=== PATIENT | female | born 1990 | race American Indian/Alaskan Native ===

== ENCOUNTER 2021-04-19 19:28 | Emergency (ER) | payer BC, OTHER | END 2021-04-19 22:26 | LOC: ED 19:28 | DX: Z04.1 Encounter for examination and observation following transport accident (principal); Z53.21 Procedure and treatment not carried out due to patient leaving prior to being seen by health care provider ==

== ENCOUNTER 2021-04-19 20:06 | Observation (INO) | payer BC, OTHER ==
[2021-04-19] MEDS ORDERED: LACTATED RINGERS 1,000 ML IV ONE (20:45)
[2021-04-19 21:13] LABS: Bilirubin,Urine NEG (Negative); Blood,Urine NEG (Negative); Color,Urine Yellow (Yellow); Mucus,Urine FEW /HPF; Protein,Urine <15 mg/dL mg/dL (Negative); Urobilinogen,Urine < 2.0 mg/dL (<2.0)
[2021-04-19 21:33] LABS: Hemoglobin 10.4 gm/dl (10.1-14.3); Mean Corpuscular HGB Conc 35 % (30-34); Mean Corpuscular Volume 91 fl (79-97); Platelet Count 282 K/mm3 (140-440); Red Blood Count 3.29 M/mm3 (3.65-5.03); Red Cell Distribution Width 14.2 % (13.2-15.2)
[2021-04-19 21:56] LABS: Alanine Aminotransferase 13 units/L (7-56); Albumin 3.2 g/dL (3.9-5); BUN/Creatinine Ratio 13; Blood Urea Nitrogen 10 mg/dL (7-17); Hemolysis Index 11
--- NOTE | 2021-04-19 23:54 | Ultrasound Report ---
ULTRASOUND OBSTETRIC LIMITED ULTRASOUND BIOPHYSICAL PROFILE INDICATION / CLINICAL INFORMATION: wellbeing. Evaluate for placental abruption. DEVENDRA. Clinical Gestational Age (GA) in weeks, days: 31, 0 TECHNIQUE: Transabdominal. COMPARISON: None available. FINDINGS: BREATHING MOVEMENT = 2 GROSS BODY MOVEMENT = 2 TONE = 2 QUALITATIVE AMNIOTIC FLUID VOLUME = 2 TOTAL BIOPHYSICAL SCORE = 8/8 HEART RATE (beats per minute): 142 AMNIOTIC FLUID INDEX (cm) = 7.6 (normal = 7-24 cm) PRESENTATION: Cephalic. ADDITIONAL FINDINGS: Right lateral/fundal placenta free of the os. No placental abruption. IMPRESSION: 1. Biophysical Score = 8/8 2. No acute abnormality. Signer Name: Juma Lara MD Signed: 04/19/2021 11:50 PM Workstation Name: [id number]
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
[2021-04-20] MEDS ORDERED: ALUM-MAG HYDROXIDE-SIMETHICONE 200-200-20MG/5ML ORAL LIQD 30 ML PO PRN (00:46)
[2021-04-20] MEDS ORDERED: ACETAMINOPHEN 500 MG TAB PO PRN (00:52)
[2021-04-20] MEDS ORDERED: LACTATED RINGERS 1,000 ML IV SCH (01:00)
--- NOTE | 2021-04-20 08:25 | Ultrasound Report ---
ULTRASOUND OBSTETRIC LIMITED INDICATION / CLINICAL INFORMATION: borderline low devendra. TECHNIQUE: Transabdominal ultrasound imaging. COMPARISON: 04/19/2021 FINDINGS: HEART RATE (beats per minute): 156 AMNIOTIC FLUID INDEX (cm) = 14.3 PRESENTATION: Cephalic. ADDITIONAL FINDINGS: None. IMPRESSION: Normal DEVENDRA on today's exam measuring 14.3 Signer Name: Missael Mariscal Jr, MD Signed: 04/20/2021 8:20 AM Workstation Name: [id number]
--- NOTE | 2021-04-20 08:26 | Discharge Summary ---
Providers - Providers Date of Admission: 04/20/21 00:46 Date of discharge: 04/20/21 Attending physician: BECCA CATALAN Primary care physician: BECCA CATALAN Hospitalization Reason for admission: observation Discharge diagnosis: other (IUP at ) Condition at discharge: Good Disposition: DC-01 TO HOME OR SELFCARE Plan - Provider Discharge Summary Activity: routine Diet: routine Instructions: routine Additional instructions: [] Smoking cessation referral if applicable(refer to patient education folder for contact #) [] Refer to [facility]'s [facility] Booklet Call your doctor immediately for: * Fever > 100.5 * Heavy vaginal bleeding ( >1 pad per hour) * Severe persistent headache * Shortness of breath * Reddened, hot, painful area to leg or breast * contractions>6/hr * decreased movement <10 movements in 2 hours * leaking fluid suspicious of bag of martinez breaking Please make an appointment to be seen in the office within 1 week. Thanks! - Follow up plan Follow up: BECCA CATALAN MD [Primary Care Provider] - 7 Days
[2021-04-20 08:51] VITALS: BP 120/75
[2021-04-20] MEDS ORDERED: PRENATAL VIT27-FE FUMARATE-FOLIC ACID VIT TAB PO SCH (10:00)
== END 2021-04-20 09:25 | disposition home or self-care (01) ==
LOC: TRG 20:06 → APU 20:07 → LD 04-20 00:46 → TRG 04-20 00:46 → LD 04-20 01:01
PROVIDERS: ADMIT Obstetrics & Gynecology; ATTEND Obstetrics & Gynecology
DX: O36.8130 Decreased fetal movements, third trimester, not applicable or unspecified (principal); O42.913 Preterm premature rupture of membranes, unspecified as to length of time between rupture and onset of labor, third trimester; Z3A.31 31 weeks gestation of pregnancy; V89.2XXA Person injured in unspecified motor-vehicle accident, traffic, initial encounter; Y93.89 Activity, other specified; Y92.89 Other specified places as the place of occurrence of the external cause; Y99.8 Other external cause status
CPT/HCPCS: 36415; 59025; 76815; 76819; 80053; 81001; 85027; 85460; 86850; 86900; 86901; G0378; J7120

== ENCOUNTER 2021-06-11 17:14 | Inpatient (IN) | payer BC, OTHER ==
[2021-06-11] MEDS ORDERED: LOPERAMIDE 2 MG CAP PO PRN (18:31)
[2021-06-11] MEDS ORDERED: NalbUPHINE 10 MG/1 ML INJ IV PRN (18:31)
[2021-06-11] MEDS ORDERED: ACETAMINOPHEN 325 MG TAB PO PRN (18:31)
[2021-06-11] MEDS ORDERED: LIDOCAINE (2%) 20 MG/1 ML VIAL 20 ML MDV INFILTRATI ONE (18:31)
[2021-06-11] MEDS ORDERED: MINERAL OIL 30 ML ORAL LIQD PO PRN (18:31)
[2021-06-11] MEDS ORDERED: CARBOPROST TROMETHAMINE 250 MCG/1 ML INJ IM PRN (18:31)
[2021-06-11] MEDS ORDERED: TERBUTALINE 1 MG/1 ML INJ SUB-Q PRN (18:31)
[2021-06-11] MEDS ORDERED: miSOPROStol 200 MCG TAB PR PRN (18:31)
[2021-06-11] MEDS ORDERED: ePHEDrine SULFATE 50 MG/1 ML INJ IV PRN ×2 (18:31→19:52)
[2021-06-11] MEDS ORDERED: fentaNYL 100 MCG/2 ML INJ IV PRN (18:31)
[2021-06-11] MEDS ORDERED: OXYTOCIN 10 UNIT/1 ML INJ IM PRN (18:31)
[2021-06-11] MEDS ORDERED: ONDANSETRON 4 MG/2 ML INJ IV PRN (18:31)
[2021-06-11] MEDS ORDERED: METHYLERGONOVINE MALEATE 0.2 MG/ML VIAL IM PRN (18:31)
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
[2021-06-11] MEDS ORDERED: LACTATED RINGERS 1,000 ML IV SCH (18:45)
[2021-06-11] MEDS ORDERED: OXYTOCIN DRIP 30 UNITS/500 ML BAG IV SCH ×2 (19:00→23:00)
[2021-06-11 19:38] LABS: Hematocrit 31.3 % (30.3-42.9); Mean Corpuscular HGB Conc 35 % (30-34); Mean Corpuscular Volume 90 fl (79-97); Platelet Count 292 K/mm3 (140-440); Red Blood Count 3.49 M/mm3 (3.65-5.03); Red Cell Distribution Width 16.3 % (13.2-15.2)
--- NOTE | 2021-06-11 19:51 | Anesthesia Consultation ---
Anesthesia Consult and Med Hx Date of service: 06/11/21 - Airway Anesthetic Teeth Evaluation: Poor ROM Head & Neck: Adequate Mental/Hyoid Distance: Adequate Mallampati Class: Class II Intubation Access Assessment: Probably Good - Pulmonary Exam CTA: Yes - Cardiac Exam Cardiac Exam: RRR - Pre-Operative Health Status ASA Pre-Surgery Classification: ASA3 Proposed Anesthetic Plan: Epidural - Pulmonary Hx Smoking: No Hx Asthma: No Hx Respiratory Symptoms: No SOB: No COPD: No Home Oxygen Therapy: No Hx Pneumonia: No Hx Sleep Apnea: No - Cardiovascular System Hx Hypertension: No Hx Coronary Artery Disease: No Hx Heart Attack/AMI: No Hx Angina: No Hx Percutaneous Transluminal Coronary Angioplasty (PTCA): No Hx Cardia Arrhythmia: No Hx Pacemaker: No Hx Internal Defibrillator: No Hx Valvular Heart Disease: No Hx Heart Murmur: No Hx Peripheral Vascular Disease: No - Central Nervous System Hx Neuromuscular Disorder: No Hx Seizures: No CVA: No Hx Back Pain: No Hx Psychiatric Problems: No - Gastrointestinal Hx Ulcer: No Hx Gastroesophageal Reflux Disease: No - Endocrine Hx Renal Disease: No Hx End Stage Renal Disease: No Hx Cirrhosis: No Hx Liver Disease: No Hx Insulin Dependent Diabetes: No Hx Non-Insulin Dependent Diabetes: No Hx Thyroid Disease: No Hx Hypothyroidism: No Hx Hyperthyroidism: No - Hematic Hx Anemia: No Hx Sickle Cell Disease: No - Other Systems Hx Alcohol Use: Yes (Not drank since pregancy) Hx Substance Use: No Hx Cancer: No Hx Obesity: Yes
[2021-06-11] MEDS ORDERED: NALOXONE 2 MG/2 ML INJ IV PRN (19:52)
[2021-06-11] MEDS ORDERED: fentaNYL-BUPIV 2 MCG/ML-0.125% 200 MCG/100 ML BAG EPIDURAL SCH (20:00)
--- NOTE | 2021-06-11 21:10 | Progress Note ---
Assessment and Plan Patient comfortable s/p epidural placement. SVE 8/100/+2, AROM clear fluid. Pt reports EFW by [facility] 7#12oz Tuesday. Pelvis feels adequate, anticipate . Will reexamine PRN. - Patient Problems (1) 38 weeks gestation of Current Visit: Yes Status: Acute (2) Active labor at term Current Visit: Yes Status: Acute Subjective - Subjective Date of service: 06/11/21 Principal diagnosis: IUP @ 38+4: Laboring Interval history: EDC Calculations by LMP: 06/21/2021 Past History : 1 Term Births: 0 Premature Births: 0 Living Children: 0 Para: 0 Mult. Births: 0 Prev : 0 Aborta: 0 Elect. Ab: 0 Spont. 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 % Sun Exposure: rarely Dietary Counseling: pn yes Past Medical History: Reviewed history from 12/29/2018 and no changes required: Negative Past Medical History Past Surgical History: Reviewed history from 12/29/2018 and no changes required: negative Past Medical History Anesthesia Complications: negative Anemia: negative Autoimmune Disorder: negative Bleeding Disorder: negative Blood Transfusions: negative Breast Disease: negative Diabetes: negative Heart Disease: negative Hypertension: negative Hepatitis/Liver Disease: negative Kidney Disease/UTI: negative Neurologic/Epilepsy/Migraines: negative Phlebitis/Varicosities: negative Psychiatric: negative Pulmonary Disease/Asthma: negative Thyroid Disease: negative Hospitalizations: negative Surgery (Non-mortgage or loan underwriter): negative Abnormal PAP: negative AMANDA Exposure: negative Infertility: negative Uterine Anomaly: negative Uterine Surgery (not C/S): negative Other Gynecologic Problems: negative Social Hx: Patient is Smoking History: Patient has never smoked. NO E/T/D Infection History Hx of STD: none HIV Risk Eval: no Hepatitis B Risk Eval: low risk Personal hx. of genital herpes: no Partner hx. of genital herpes: no Rash, Viral, or Febrile illness since last LMP? no Varicella/Chicken Pox Status: Previous Disease TB Risk: no Genetic History Congenital Heart Defect: Mom: no Dad: no Ralf Disease: Mom: no Dad: no Thalassemia Mom: no Dad: no Neural Tube Defect Mom: no Dad: no Down's Syndrome Mom: no Dad: no Kevin-Sachs Mom: no Dad: no Sickle Cell Disease/Trait Mom: no Dad: yes Comments: Brother of FOC Hemophilia Mom: no Dad: no Muscular Dystrophy Mom: no Dad: no Cystic Fibrosis Mom: no Dad: no [place] Chorea Mom: no Dad: no Mental Retardation Mom: no Dad: no Fragile X Mom: no Dad: no Other Genetic/Chromosomal Disorder Mom: no Dad: no Child w/other defect Mom: no Dad: no Enviromental Exposures Xray Exposure: no Medication, drug, or alcohol use since LMP: no Chemical/Other Exposure: no Exposure to Cat Liter: no Hx of Parvovirus (Fifth Disease): no Occupational Exposure to Children: none Current Allergies: No known allergies Patient reports: no new complaints (pt comfortable s/p epidural) Objective - Vital Signs Vital Signs: Vital Signs - 12hr 06/11/21 06/11/21 06/11/21 17:47 17:50 17:52 Temperature 99.6 F Pulse Rate 107 H 110 H 101 H Respiratory 22 Rate Blood Pressure 119/63 Blood Pressure 119/63 [Right] O2 Sat by Pulse 97 99 97 Oximetry O2 Sat by Pulse Oximetry [ Bilateral] 06/11/21 06/11/21 06/11/21 17:57 18:02 18:07 Temperature Pulse Rate 105 H 108 H 102 H Respiratory Rate Blood Pressure Blood Pressure [Right] O2 Sat by Pulse 99 98 98 Oximetry O2 Sat by Pulse Oximetry [ Bilateral] 06/11/21 06/11/21 06/11/21 18:25 18:27 18:32 Temperature Pulse Rate 107 H 106 H 101 H Respiratory Rate Blood Pressure Blood Pressure [Right] O2 Sat by Pulse 0 L 98 99 Oximetry O2 Sat by Pulse Oximetry [ Bilateral] 06/11/21 06/11/21 06/11/21 18:34 18:37 18:42 Temperature Pulse Rate 103 H 103 H 107 H Respiratory Rate Blood Pressure Blood Pressure [Right] O2 Sat by Pulse 94 96 96 Oximetry O2 Sat by Pulse Oximetry [ Bilateral] 06/11/21 06/11/21 06/11/21 18:47 18:52 18:57 Temperature Pulse Rate 109 H 114 H 118 H Respiratory Rate Blood Pressure Blood Pressure [Right] O2 Sat by Pulse 98 97 97 Oximetry O2 Sat by Pulse Oximetry [ Bilateral] 06/11/21 06/11/21 06/11/21 19:02 19:07 19:12 Temperature Pulse Rate 107 H 112 H 112 H Respiratory Rate Blood Pressure Blood Pressure [Right] O2 Sat by Pulse 98 96 98 Oximetry O2 Sat by Pulse Oximetry [ Bilateral] 06/11/21 06/11/21 06/11/21 19:17 19:24 19:28 Temperature Pulse Rate 109 H 113 H 113 H Respiratory Rate Blood Pressure 118/91 Blood Pressure [Right] O2 Sat by Pulse 97 99 Oximetry O2 Sat by Pulse Oximetry [ Bilateral] 06/11/21 06/11/21 06/11/21 19:29 19:34 20:18 Temperature Pulse Rate 107 H 111 H 117 H Respiratory Rate Blood Pressure 121/74 Blood Pressure [Right] O2 Sat by Pulse 98 97 100 Oximetry O2 Sat by Pulse Oximetry [ Bilateral] 06/11/21 06/11/21 06/11/21 20:19 20:21 20:22 Temperature Pulse Rate 115 H 122 H Respiratory Rate Blood Pressure 121/77 118/76 Blood Pressure [Right] O2 Sat by Pulse Oximetry O2 Sat by Pulse 98 Oximetry [ Bilateral] 06/11/21 06/11/21 06/11/21 20:23 20:24 20:25 Temperature Pulse Rate 118 H 116 H 116 H Respiratory Rate Blood Pressure 123/80 119/74 Blood Pressure [Right] O2 Sat by Pulse 96 Oximetry O2 Sat by Pulse Oximetry [ Bilateral] 06/11/21 06/11/21 06/11/21 20:28 20:29 20:32 Temperature Pulse Rate 113 H 114 H 107 H Respiratory Rate Blood Pressure 127/76 129/68 121/68 Blood Pressure [Right] O2 Sat by Pulse 100 Oximetry O2 Sat by Pulse Oximetry [ Bilateral] 06/11/21 06/11/21 06/11/21 20:33 20:35 20:39 Temperature Pulse Rate 115 H 117 H 112 H Respiratory Rate Blood Pressure 122/70 119/67 123/65 Blood Pressure [Right] O2 Sat by Pulse 98 Oximetry O2 Sat by Pulse Oximetry [ Bilateral] 06/11/21 06/11/21 20:51 21:00 Temperature Pulse Rate 112 H 97 H Respiratory Rate Blood Pressure 106/63 119/61 Blood Pressure [Right] O2 Sat by Pulse Oximetry O2 Sat by Pulse Oximetry [ Bilateral] - Exam Cardiovascular: Regular rate Lungs: Normal air movement Abdomen: Present: normal appearance, soft Vulva: both: normal Uterus: Present: normal FHR: category 1 Uterine Contraction Monitor Mode: External Cervical Dilatation: 8 Cervical Effacement Percentage: 100 station: +2 Uterine Contraction Frequency (min): 2-3 Uterine Contraction Duration: 60 Uterine Contraction Pattern: Regular Uterine Tone Measurement Phase: Contraction Uterine Contraction Intensity: Strong/Firm Extremities: normal - Labs Labs: Abnormal Labs 06/11/21 Unknown RBC 3.49 L MCHC 35 H RDW 16.3 H Laboratory Results - last 24 hr 06/11/21 06/11/21 06/11/21 Unknown Unknown Unknown WBC 9.2 RBC 3.49 L Hgb 11.0 Hct 31.3 MCV 90 MCH 32 MCHC 35 H RDW 16.3 H Plt Count 292 Syphilis IgG Antibody Nonreactive Blood Type O POSITIVE Antibody Screen Negative
--- NOTE | 2021-06-11 23:04 | Progress Note ---
Labor Epidural - Labor Epidural Start Time: 20:20 Stop Time: 20:33 Performed by:: MARGY SLOAN Procedure: Patient is requesting a laboring epidural for laboring pain. Patient IDed, H&P reviewed, all questions and concerns were answered, and consent was signed. Timeout was performed at bedside. Patient in sitting position. Sterile prep and drape was performed. [3] ml of 1% lidocaine skin wheal at L[3]- L [4]. 18- gauge Kuaidi Dachetead epidural needle was advanced to loss of resistance with saline technique 8cm. Negative CSF negative blood. Epidural catheter advanced to [12] centimeters. [NEGATIVE] Aspiration [NEGATIVE] test dose. Sterile dressing applied. Patient tolerated procedure.
--- NOTE | 2021-06-12 01:08 | Procedure Note ---
OB Delivery Note - Delivery Date of Delivery: 06/12/21 ( baby boy) Monorail Operator: CHALINO RAMIREZ Estimated blood loss: other (350) - Vaginal Delivery presentation: vertex Delivery position: OA (JOSSE) Intrapartum events: none Delivery induction: none Delivery augmentation: rupture of membranes Delivery monitor: external FHT, external uterine Route of delivery: Delivery placenta: spontaneous Delivery cord: 3 umbilical vessels Episiotomy: none Delivery laceration: 2nd degree Delivery repair: vicryl Anesthesia: epidural Delivery comments: male infant born over intact perineum, JOSSE with left hand posterior compound presentation. Infant placed skin to skin, 3 vessel cord clamped and cut after c essation of pulsation. Cord blood collected. Placenta del intact and complete. 2nd degree laceration repaired in the usual fashion. EBL 350. apgars 8/9, wt 7#1oz. Mother and baby LDR stable. All counts correct. - Infant A at 1 minute: 8 at 5 minutes: 9 Gender: Male (7#1oz)
--- NOTE | 2021-06-12 01:49 | Post Anesthesia Evaluation ---
- Post Anesthesia Evaluation Patient Participated: Yes Airway Patent: Yes Stable Respiratory Function: Yes Nausea/Vomiting: No Temp > 96.8F: Yes Pain Manageable: Yes Adequeate Hydration: Yes Anesthesia Complications: No Block Receding Appropriately: Yes Patient on Ventilator: No
[2021-06-12] MEDS ORDERED: BENZOCAINE/MENTHOL 20/0.5% TOP SPRAY 56 GM TP PRN (02:49)
[2021-06-12] MEDS ORDERED: diphenhydrAMINE 25 MG CAP PO PRN (02:49)
[2021-06-12] MEDS ORDERED: LANOLIN/ZINC/DIMETHICONE (LANSINOH) 7 GM TP PRN ×2 (02:49)
[2021-06-12] MEDS ORDERED: MAGNESIUM HYDROXIDE (MOM) ORAL LIQD UDC PO PRN (02:49)
[2021-06-12] MEDS ORDERED: PROMETHAZINE 25 MG TAB PO PRN (02:49)
[2021-06-12] MEDS: IBUPROFEN 600 MG TAB PO SCH ×4 (03:51→23:30)
--- NOTE | 2021-06-12 08:02 | Progress Note ---
Assessment and Plan Pt sitting in bed without complaints this am. Infant swaddled in bassinet sleeping. Pt reports ambulating, voiding, and eating well and without difficulties. VSSAF. Post delivery H&H to be drawn today. Precautions and POC reviewed. All questions addressed. Pt reports desires for circumcision outpatient. Anticipate stable dc home tmrw. - Patient Problems (1) (normal spontaneous vaginal delivery) Current Visit: Yes Status: Acute Plan to address problem: continue pathway (2) Gestational proteinuria Current Visit: No Status: Acute Plan to address problem: Monitor PP VS and SSx closely; notify provider with any changes Subjective - Subjective Date of service: 06/12/21 Principal diagnosis: PP Day 1 Patient reports: appetite normal, voiding normally, pain well controlled, ambulating normally [place]: doing well Objective - Vital Signs Latest vital signs: Vital Signs Temp Pulse Resp BP BP Pulse Ox Pulse Ox 06/12/21 04:00 99.0 F 94 H 18 104/69 98 06/12/21 03:11 99.3 F 18 06/12/21 03:03 95 H 113/62 06/12/21 03:02 91 H 98 06/12/21 02:57 101 H 98 06/12/21 02:52 122 H 98 06/12/21 02:48 116 H 106/51 06/12/21 02:47 97 H 97 06/12/21 02:42 117 H 97 06/12/21 02:37 101 H 98 06/12/21 02:33 93 H 99/64 06/12/21 02:32 112 H 98 06/12/21 02:27 111 H 99 06/12/21 02:22 99 H 100 06/12/21 02:18 101 H 106/69 06/12/21 02:17 104 H 99 06/12/21 02:16 105 H 92 06/12/21 02:12 110 H 99 06/12/21 02:07 119 H 99 06/12/21 02:03 82 111/62 06/12/21 02:02 94 H 100 06/12/21 01:57 104 H 99 06/12/21 01:52 102 H 98 06/12/21 01:48 106 H 110/57 06/12/21 01:47 99 H 99 06/12/21 01:42 104 H 98 06/12/21 01:37 105 H 98 06/12/21 01:33 98 H 111/57 06/12/21 01:32 101 H 98 06/12/21 01:27 110 H 98 06/12/21 01:22 96 H 98 06/12/21 01:19 66 94 06/12/21 01:17 88 97 06/12/21 01:12 100 H 98 06/12/21 01:07 98.4 F 106 H 18 98 06/12/21 01:05 104 H 101/53 06/12/21 01:02 121 H 98 06/12/21 00:55 100 H 97 06/12/21 00:50 101 H 105/61 98 06/12/21 00:45 102 H 98 06/12/21 00:40 117 H 99 06/12/21 00:38 111 H 98 06/12/21 00:33 107 H 98 06/12/21 00:28 97 H 98 06/12/21 00:23 131 H 98 06/12/21 00:18 98 H 98 06/12/21 00:13 118 H 97 06/12/21 00:12 109 H 117/59 94 06/12/21 00:08 95 H 98 06/12/21 00:03 94 H 96 06/11/21 23:58 93 H 97 06/11/21 23:53 90 95 06/11/21 23:48 95 H 98 06/11/21 23:43 91 H 96 06/11/21 23:41 90 88/51 06/11/21 23:38 92 H 97 06/11/21 23:33 90 98 06/11/21 23:28 92 H 96 06/11/21 23:23 91 H 97 06/11/21 23:18 92 H 97 06/11/21 23:13 94 H 99 06/11/21 23:10 94 H 93/57 06/11/21 23:08 92 H 98 06/11/21 23:03 94 H 97 06/11/21 22:58 95 H 97 06/11/21 22:53 88 97 06/11/21 22:48 91 H 96 06/11/21 22:43 88 97 06/11/21 22:38 93 H 97 06/11/21 22:33 93 H 97 06/11/21 22:21 91 H 116/63 06/11/21 22:12 93 H 109/63 06/11/21 22:00 91 H 115/68 06/11/21 21:50 93 H 119/66 06/11/21 21:40 95 H 114/65 06/11/21 21:31 96 H 113/59 06/11/21 21:19 94 H 129/69 06/11/21 21:11 98 H 126/64 06/11/21 21:00 97 H 119/61 06/11/21 20:51 112 H 106/63 06/11/21 20:39 112 H 123/65 06/11/21 20:35 117 H 119/67 06/11/21 20:33 115 H 122/70 98 06/11/21 20:32 107 H 121/68 06/11/21 20:29 114 H 129/68 06/11/21 20:28 113 H 127/76 100 06/11/21 20:25 116 H 119/74 06/11/21 20:24 116 H 123/80 06/11/21 20:23 118 H 96 06/11/21 20:22 122 H 118/76 06/11/21 20:21 98 06/11/21 20:19 115 H 121/77 06/11/21 20:18 117 H 121/74 100 06/11/21 19:34 111 H 97 06/11/21 19:29 107 H 98 06/11/21 19:28 113 H 118/91 06/11/21 19:24 113 H 99 06/11/21 19:17 109 H 97 06/11/21 19:12 112 H 98 06/11/21 19:07 112 H 96 06/11/21 19:02 107 H 98 06/11/21 18:57 118 H 97 06/11/21 18:52 114 H 97 06/11/21 18:47 109 H 98 06/11/21 18:42 107 H 96 06/11/21 18:37 103 H 96 06/11/21 18:34 103 H 94 06/11/21 18:32 101 H 99 06/11/21 18:27 106 H 98 06/11/21 18:25 107 H 0 L 06/11/21 18:07 102 H 98 06/11/21 18:02 108 H 98 06/11/21 17:57 105 H 99 06/11/21 17:52 101 H 97 06/11/21 17:50 99.6 F 110 H 22 119/63 99 06/11/21 17:47 107 H 119/63 97 Intake and Output 06/11/21 06/12/21 06/12/21 23:59 07:59 15:59 Output Total 300 Balance -300 Output: Urine 300 Void 300 Other: Total, Output Amount 300 Weight 258 lb Estimated Blood Loss 350 - Exam Breasts: Present: Cardiovascular: Present: Regular rate Lungs: Present: Normal air movement Abdomen: Present: normal appearance, soft Vulva: both: normal Uterus: Present: normal, firm, fundal height at umbilicus Extremities: Present: normal Comments: scant lochia on peripad - Labs Labs: Abnormal lab results 06/11/21 Range/Units Unknown RBC 3.49 L (3.65-5.03) M/mm3 MCHC 35 H (30-34) % RDW 16.3 H (13.2-15.2) %
[2021-06-12] MEDS ORDERED: PRENATAL VIT27-FE FUMARATE-FOLIC ACID VIT TAB PO SCH (10:00)
[2021-06-12 17:56] LABS: Hematocrit 28.4 % (30.3-42.9); Hemoglobin 9.4 gm/dl (10.1-14.3)
[2021-06-12] MEDS: WITCH HAZEL/ GLYCERIN PAD TP PRN (18:33)
[2021-06-12] MEDS: DOCUSATE SODIUM 100 MG CAP PO SCH (23:31)
[2021-06-12] MEDS: FERROUS SULFATE 325 MG TAB PO SCH (23:32)
[2021-06-13] MEDS: IBUPROFEN 600 MG TAB PO SCH ×2 (05:47→11:39)
[2021-06-13] MEDS ORDERED: TETANUS,DIPH,PERTUSS(ACELL) VACCINE 0.5 ML SYRINGE IM ONE (06:00)
[2021-06-13] MEDS: FERROUS SULFATE 325 MG TAB PO SCH (11:39)
[2021-06-13] MEDS: DOCUSATE SODIUM 100 MG CAP PO SCH (11:39)
--- NOTE | 2021-06-13 12:06 | Discharge Summary ---
Providers - Providers Date of Admission: 06/11/21 18:31 Date of discharge: 06/13/21 Attending physician: LIYA MEDINA 06/12/21 02:49 Consult to [employer] [CONS] Routine Reason For Exam: assistance with , SNS Primary care physician: LIYA MEDINA Hospitalization Reason for admission: Labor Condition: Good Pertinent studies: H&H 9.4/28.4 Asymptomatic anemia d/t acute bloodloss Procedures: Hospital course: Uncomplicated and course Disposition: 01 HOME / SELF CARE / HOMELESS Final Discharge Diagnosis (Prints w/discharge instructions): Time spent for discharge: 15 - Discharge Diagnoses (1) (normal spontaneous vaginal delivery) Status: Acute Core Measure Documentation - Palliative Care Palliative Care/ Comfort Measures: Not Applicable - Core Measures Any of the following diagnoses?: none Exam - Constitutional Vitals: Temp Pulse Resp BP Pulse Ox 98.2 F 85 18 111/76 98 06/13/21 07:54 06/13/21 07:54 06/13/21 07:54 06/13/21 07:54 06/13/21 08:20 General appearance: Present: no acute distress, well-nourished - EENT Eyes: Present: PERRL ENT: hearing intact, clear oral mucosa - Neck Neck: Present: supple, normal ROM - Respiratory Respiratory effort: normal Respiratory: bilateral: CTA - Cardiovascular Heart Sounds: Present: S1 & S2. Absent: rub, click - Extremities Extremities: pulses symmetrical, No edema Peripheral Pulses: within normal limits - Abdominal General gastrointestinal: Present: soft, non-tender, non-distended, normal bowel sounds Female genitourinary: Present: normal - Integumentary Integumentary: Present: clear, warm, dry - Musculoskeletal Musculoskeletal: gait normal, strength equal bilaterally - Psychiatric Psychiatric: appropriate mood/affect, intact judgment & insight - Neurologic Neurologic: CNII-XII intact, moves all extremities - Additional findings Additional findings: Fundus firm, lochia scant Plan Activity: no restrictions Diet: regular Follow up with: LIYA MEDINA MD [Primary Care Provider] - 7 Days (Congratulations! Please call [phone] to schedule your son's circumcision in 1 week and your follow-up in 4 weeks. Bring EMLA cream to your son's visit and wait for further teaching. Please call with any questions or concerns.) Prescriptions: Lidocain2.5%/Prilocai2.5% [Emla] 5 gm TP ONCE PRN #1 tube PRN Reason: Pain Ibuprofen [Motrin 800 MG tab] 800 mg PO Q8HR PRN #30 tablet PRN Reason: Pain
[2021-06-13 14:11] VITALS: BP 118/81
[2021-06-13] MEDS: WITCH HAZEL/ GLYCERIN PAD TP PRN (15:29)
== END 2021-06-13 15:29 | disposition home or self-care (01) | DRG 806 ==
LOC: TRG 17:14 → APU 17:16 → TRG 18:31 → LD 18:31 → OB 06-12 03:17
PROVIDERS: ADMIT Obstetrics & Gynecology; ATTEND Obstetrics & Gynecology
PROC: 10E0XZZ Delivery of Products of Conception, External Approach (ICD-10-PCS; principal; 2021-06-12)
PROC: 0KQM0ZZ Repair Perineum Muscle, Open Approach (ICD-10-PCS; 2021-06-12)
PROC: 10907ZC Drainage of Amniotic Fluid, Therapeutic from Products of Conception, Via Natural or Artificial Opening (ICD-10-PCS; 2021-06-12)
PROC: 3E0R3BZ Introduction of Anesthetic Agent into Spinal Canal, Percutaneous Approach (ICD-10-PCS; 2021-06-12)
PROC: 00HU33Z Insertion of Infusion Device into Spinal Canal, Percutaneous Approach (ICD-10-PCS; 2021-06-12)
PROC: 3E0234Z Introduction of Serum, Toxoid and Vaccine into Muscle, Percutaneous Approach (ICD-10-PCS; 2021-06-13)
DX: O12.14 Gestational proteinuria, complicating childbirth (principal); D62 Acute posthemorrhagic anemia; Z37.0 Single live birth; Z3A.38 38 weeks gestation of pregnancy; Z23 Encounter for immunization; O34.13 Maternal care for benign tumor of corpus uteri, third trimester; D25.9 Leiomyoma of uterus, unspecified; O99.214 Obesity complicating childbirth; E66.01 Morbid (severe) obesity due to excess calories; O70.1 Second degree perineal laceration during delivery; O90.81 Anemia of the puerperium; Z20.822 Contact with and (suspected) exposure to COVID-19
CPT/HCPCS: 36415; 85014; 85018; 85027; 86592; 86850; 86900; 86901; 90471; 90715; G0378; A6250; J2590; U0003